=== PATIENT | female | born 1985 | race Two or more races ===

== ENCOUNTER 2024-02-18 13:06 | Emergency (ER) | payer MEDICAID ==
[~2024-02-18] VITALS: Ht 167.6 cm; Wt 77.2 kg
[2024-02-18 13:33] LABS: Basophils # (auto) 0 10 ^3/uL (0-0.2); Basophils % (auto) 0.8 % (0.0-2.0); Eosinophils # (auto) 0.1 10 ^3/uL (0-0.8); Eosinophils % (auto) 2.9 % (0.0-7.0); Hemoglobin 14.7 g/dL (12.2-16.2); Lymphocytes # (auto) 1.4 10 ^3/uL (0.4-5.4); Lymphocytes % (auto) 30.5 % (10.0-50.0); Mean Corpuscular Hemoglobin 31.8 pg (28.0-32.0); Mean Corpuscular Volume 90.9 fL (80.0-100.0); Monocytes # (auto) 0.3 10 ^3/uL (0-1.3); Monocytes % (auto) 7.5 % (0.0-12.0); Neutrophils # (auto) 2.7 10 ^3/uL (1.6-8.6); Neutrophils % (auto) 58.3 % (37.0-80.0); Red Blood Cells 4.62 10^6/uL (4.0-5.20); Red Cell Distribution Width 13.8 % (11.8-14.3); White Blood Cell 4.5 10^3/uL (4.4-10.8)
[2024-02-18 13:50] LABS: INR 1.04 (0.9-1.15); Partial Thromboplastin Time 28.1 SEC (24.5-34.5)
[2024-02-18 13:55] LABS: Alanine Aminotransferase 25 U/L (7-40); Albumin 4.5 g/dL (3.2-4.8); Alkaline Phosphatase 79 U/L (46-116); Anion Gap 11 (5-15); Aspartate Aminotransferase 10 U/L (13-40); BUN/Creatinine Ratio 12.2 (10.0-20.0); Bilirubin, Total 0.9 mg/dL (0.2-1.0); Blood Urea Nitrogen 11 mg/dL (9-23); Calcium 9.9 mg/dL (8.7-10.4); Carbon Dioxide 24 mmol/L (20-30); Chloride 107 mmol/L (98-107); Glucose 92 mg/dL (74-106); Magnesium 1.9 mg/dL (1.6-2.6); Potassium 3.6 mmol/L (3.5-5.1); Sodium 142 mmol/L (136-145)
[2024-02-18 13:56] LABS: Total Protein 7.1 g/dL (5.7-8.2)
[2024-02-18] MEDS: MORPHINE SULFATE 4 MG/ML SYR/VIAL IV ONE (15:09)
[2024-02-18] MEDS: NITROGLYCERIN 2% OINT 1GM PKG TD ONE (15:09)
[2024-02-18 15:10] LABS: Urine Bacteria None Seen /hpf (None Seen)
[2024-02-18] MEDS: SODIUM CHLORIDE 0.9% 2,000 ML IV ONE (15:15)
[2024-02-18] MEDS: ASPirin 325 MG TAB PO ONE (15:15)
[2024-02-18 15:17] LABS: Urine Blood 1+ /uL (Negative); Urine Clarity Turbid (Clear); Urine Color Yellow (Yellow); Urine Mucus MODERATE (None Seen); Urine Protein, UAD 1+ (Negative); Urine Specific Gravity 1.031 (1.001-1.035); Urine Urobilinogen Normal (Negative); Urine WBC 12 /hpf (0 - 5); Urine pH 5.5 (5.0-9.0)
[2024-02-18 15:19] LABS: Free T3 3.19 pg/mL (2.3-4.2); Free T4 (Free Thyroxine) 1.29 ng/dL (0.89-1.76)
[2024-02-18 16:52] VITALS: BP 108/59; PULSE 63; RESP 18; TEMP 97.8; O2SAT 100
== END 2024-02-18 16:53 | disposition home or self-care (01) ==
LOC: ER 13:06
DX: R00.2 Palpitations (principal); E86.0 Dehydration; E78.5 Hyperlipidemia, unspecified
CPT/HCPCS: 36415; 71045; 80053; 81001; 83735; 84439; 84443; 84481; 84484; 85025; 85610; 85730; 93005; 96360; 96361; 99285; J7030

== ENCOUNTER 2024-03-01 09:03 | Day surgery (SDC) | payer MEDICAID ==
[~2024-03-01] VITALS: Ht 167.6 cm; Wt 76.7 kg
[~2024-03-01 09:03] MED LIST: PREN-96 PO
[2024-03-01] MEDS ORDERED: ANGIOMAX 250 MG VIAL IV ONE (12:08)
[2024-03-01] MEDS ORDERED: HEPARIN SODIUM (PORCINE) 5000 UNITS/ML 1ML VIAL ONE (12:08)
[2024-03-01] MEDS ORDERED: fentaNYL CITRATE 100 MCG/2 ML VL ONE (12:09)
[2024-03-01] MEDS ORDERED: VERAPAMIL 2.5MG/ML INJ 2ML VIAL IV ONE (12:09)
[2024-03-01] MEDS ORDERED: MIDAZOLAM HCL 2MG/2ML 2ml VIAL (1mg/ml) ONE (12:09)
[2024-03-01] MEDS ORDERED: SODIUM CHL 0.9% 0 ML ONE (12:09)
[2024-03-01] MEDS ORDERED: LIDOCAINE 2%HCL (LOCAL ANESTH.) INJ 20ML MDV ONE (12:10)
== END 2024-03-01 14:35 | disposition home or self-care (01) ==
LOC: CATH 09:03
PROVIDERS: ATTEND Internal Medicine
DX: I25.10 Atherosclerotic heart disease of native coronary artery without angina pectoris (principal)
CPT/HCPCS: 93458; C1887; C1894; J1644; J2250; J3010; J7030; Q9967; 99152

== ENCOUNTER 2024-12-21 10:49 | Outpatient (CLI) | payer MEDICAID ==
[2024-12-21] MEDS ORDERED: ALBUTEROL SULF 2.5 MG/0.5ML(0.5%) NEB SOLN ONE (11:02)
== END 2024-12-21 17:00 | disposition home or self-care (01) ==
LOC: RT 10:49
PROVIDERS: ATTEND Internal Medicine
DX: Z01.811 Encounter for preprocedural respiratory examination (principal); I42.9 Cardiomyopathy, unspecified
CPT/HCPCS: 94060; 94729

== ENCOUNTER 2025-06-20 09:16 | Emergency (ER) | payer MEDICAID ==
[~2025-06-20] VITALS: Ht 167.6 cm; Wt 82.2 kg
--- NOTE | 2025-06-20 09:37 | ED.PDOC ---
HPI Comments This is a 39 year old female presenting to the ED with chief complaint of chest pain. Patient reports that she has been experiencing left sided chest pain with associated SOB and lightheadedness since 0430 this morning. Patient relays that her pain has been occurring intermittently since then. Patient notes she is currently on Ranexa, Entresto, and Jardiance. Patient denies any dizziness, headache, N/V, or abdominal pain. Chief Complaint: Chest Pain Time Seen by MD: 09:34 Primary Care Provider: KELLIE Cruz Notes: Nurses Notes, Medications, Allergies Allergies: Coded Allergies: NO KNOWN ALLERGIES (Unverified , 02/28/24) Home Meds Reported Medications Vit W/ Ferrous Fumara ( One Daily) Daily Tab, 1 TAB PO DAILY, #90 TAB 3 Refills 02/28/24 Information Source: Patient Mode of Arrival: Ambulatory Severity: Moderate Timing: Hours Duration: Since onset Prehospital treatment: None Location: Chest (L) Quality: Sharp Onset: At Rest Cardiac Risk Factors: Hyperlipidemia PE Risk Factors: None Associated Signs and Symptoms: SOB Past Medical History PAST MEDICAL HISTORY: High Lipids Surgical History: Denies all surgeries 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 History Family History Family History: Reviewed,noncontributory to illness, No family hx of Cancer, No family hx of DM, No family hx of Heart jocelyn, No family hx of HTN, No family hx ofKidney jocelyn, No family hx of Liver jocelyn, No family hx of Lung jocelyn, No family hx of Stroke Social History Smoker: Non-Smoker Alcohol: Denies ETOH Use Drugs: Denies Drug Use Lives In: Home Constitutional: denies: chills, diaphoresis, fatigue, fever, malaise, sweats, weakness, others EENTM: denies: blurred vision, double vision, ear bleeding, ear discharge, ear drainage, ear pain, ear ringing, eye pain, eye redness, hearing loss, mouth pain, mouth swelling, nasal discharge, nose bleeding, nose congestion, nose pain, photophobia, tearing, throat pain, throat swelling, voice changes, others Respiratory: reports: shortness of breath; denies: cough, hemoptysis, orthopnea, SOB at rest, SOB with excertion, stridor, wheezing, others Cardiovascular: reports: chest pain, lightheadedness; denies: dizzy spells, diaphoresis, Dyspnea on exertion, edema, irregular heart beat, left arm pain, palpitations, PND, syncope, others Gastrointestinal: denies: abdomen distended, abdominal pain, blood streaked bowels, constipated, diarrhea, dysphagia, difficulty swallowing, hematemesis, melena, nausea, poor appetite, poor fluid intake, rectal bleeding, rectal pain, vomiting, others Genitourinary: denies: abnormal vagina bleeding, burning, dyspareunia, dysuria, flank pain, frequency, hematuria, incontinence, pain, , vagina discharge, urgency, others Neurological: denies: dizziness, fainting, headache, left sided numbness, left sided weakness, numbness, paresthesia, pre-existing deficit, right sided numbness, right sided weakness, seizure, speech problems, tingling, tremors, weakness, others Musculoskeletal: denies: back pain, gout, joint pain, joint swelling, muscle pain, muscle stiffness, neck pain, others Integumetry: denies: bruises, change in color, change in hair/nails, dryness, laceration, lesions, lumps, rash, wounds, others Allergic/Immunocompromised: denies: Difficulty Healing, Frequent Infections, Hives, Itching, others Hematologic/Lymphatic: denies: anemia, blood clots, easy bleeding, easy bruising, swollen glands, others Endocrine: denies: excessive hunger, excessive sweating, excessive thirst, excessive urination, flushing, intolerance to cold, intolerance to heat, unexplained weight gain, unexplained weight loss, others Psychiatric: denies: anxiety, bipolar disorder, depression, hopeless, panic disorder, schizophrenia, sleepless, suicidal, others All Other Systems: Reviewed and Negative Physical Exam General Appearance: Moderate Distress, Normal HEENT: Normal ENT Inspection, Pharynx Normal, TMs Normal Neck: Full Range of Motion, Non-Tender, Normal, Normal Inspection Respiratory: Chest Non-Tender, Lungs Clear, No Accessory Muscle Use, No Respiratory Distress, Normal Breath Sounds Cardiovascular: No Edema, No JVD, No Murmur, No Gallop, Normal Peripheral Pulses, Regular Rate/Rhythm Breast Exam: Deferred Gastrointestinal: No Organomegaly, Non Tender, No Pulsatile Mass, Normal Bowel Sounds, Soft Genitalia: Deferred Pelvic: Deferred Rectal: Deferred Extremities: No calf tenderness, Normal capillary refill, Normal inspection, Normal range of motion, Non-tender, No pedal edema Musculoskeletal : Apperance: Normal Neurologic: Alert, pharmacy affairs assistant II-XII nml as Tested, No Motor Deficits, Normal Affect, Normal Mood, No Sensory Deficits Cerebellar Function: Normal Reflexes: Normal Skin: Dry, Normal Color, Warm Peripheral Pulses: 3+ Radial (R), 3+ Radial (L) Lymphatic: No Adenopathy Was a procedure done? Was a procedure done?: No CP Differential Dx Differential Diagnosis: A-fib, A-Flutter, Angina, Anxiety / Panic Attack, Atrial Dysrhythmia, Electrolyte Disorder X-Ray, Labs, Meds, VS Vital Signs Date Time Temp Pulse Resp B/P (MAP) Pulse Ox O2 Delivery O2 Flow Rate FiO2 06/20/25 11:37 98.2 67 17 102/72 (82) 99 98.2 06/20/25 10:23 67 06/20/25 10:08 98.1 75 17 110/68 (82) 100 98.1 06/20/25 10:08 75 17 100 Room Air 06/20/25 09:25 98.2 68 20 120/76 98 98.2 06/20/25 09:23 69 Lab Test 06/20/25 10:19 06/20/25 09:45 06/20/25 09:31 Range/Units Troponin I High Sensitivity 7 6 </=34 ng/L Urine Color Yellow Yellow Urine Clarity Turbid H Clear Urine pH 5.5 5.0-9.0 Urine Specific [place] 1.031 1.001-1.035 Urine Protein Negative Negative Urine Ketones Negative Negative Urine Blood Negative Negative /uL Urine Nitrite Negative Negative Urine Bilirubin Negative Negative Urine Urobilinogen Normal Negative mg/dL Urine Leukocyte Esterase 1+ Negative /uL Urine RBC 7 0 - 4 /hpf Urine Microscopic WBC 5 0-5 /HPF Urine Squamous Epithelial Cells Few <5 /hpf Urine Bacteria None seen None Seen /hpf Urine Glucose 4+ H Normal mg/dL Urine Test Negative Negative White Blood Count 4.3 L 4.4-10.8 10^3/uL Red Blood Count 4.24 4.0-5.20 10^6/uL Hemoglobin 13.5 12.2-16.2 g/dL Hematocrit 39.2 36.0-46.0 % Mean Corpuscular Volume 92.3 80.0-100.0 fL Mean Corpuscular Hemoglobin 31.9 28.0-32.0 pg Mean Corpuscular Hemoglobin Concent 34.6 32.0-36.0 g/dL Red Cell Distribution Width 13.4 11.8-14.3 % Platelet Count 242 140-450 10^3/uL Mean Platelet Volume 7.9 6.9-10.8 fL Neutrophils (%) (Auto) 65.1 37.0-80.0 % Lymphocytes (%) (Auto) 25.7 10.0-50.0 % Monocytes (%) (Auto) 7.2 0.0-12.0 % Eosinophils (%) (Auto) 1.5 0.0-7.0 % Basophils (%) (Auto) 0.5 0.0-2.0 % Neutrophils # (Auto) 2.8 1.6-8.6 10 ^3/uL Lymphocytes # (Auto) 1.1 0.4-5.4 10 ^3/uL Monocytes # (Auto) 0.3 0-1.3 10 ^3/uL Eosinophils # (Auto) 0.1 0-0.8 10 ^3/uL Basophils # (Auto) 0 0-0.2 10 ^3/uL Nucleated Red Blood Cells 0.1 % Sodium Level 143 136-145 mmol/L Potassium Level 4.0 3.5-5.1 mmol/L Chloride Level 106 98-107 mmol/L Carbon Dioxide Level 29 20-31 mmol/L Anion Gap 8 5-15 Blood Urea Nitrogen 16 9-23 mg/dL Creatinine 0.96 0.550-1.02 mg/dL Glomerular Filtration Rate Calc 78 >90 mL/min BUN/Creatinine Ratio 16.7 10.0-20.0 Serum Glucose 80 74-106 mg/dL Calcium Level 9.7 8.7-10.4 mg/dL Patient alert. Complaining of chest pain. Vitals stable. Answering questions. Not in distress pain EKG reviewed does not show any acute changes. Cardiac marker within normal limits. Urinalysis shows UTI. Was given prescription of Macrobid antibiotic. Was told to follow up with her primary care physician. Was told to come back there is any problem. Time of 1ST Reevaluation: 10:34 Reevaluation 1ST: Unchanged Patient Education/Counseling: Diagnosis, Treatment Family Education/Counseling: No Family Present SEPSIS Sepsis Screen Physician Orders Electrocardigram (06/20/25 09:24) Electrocardigram (06/20/25 10:24) Electrocardigram (06/20/25 12:24) Troponin-I Hs (06/20/25 12:24) Chest Portable (06/20/25 09:24) Vital Signs Date Time Temp Pulse Resp B/P (MAP) Pulse Ox O2 Delivery O2 Flow Rate FiO2 06/20/25 11:37 98.2 67 17 102/72 (82) 99 98.2 06/20/25 10:23 67 06/20/25 10:08 98.1 75 17 110/68 (82) 100 98.1 06/20/25 10:08 75 17 100 Room Air 06/20/25 09:25 98.2 68 20 120/76 98 98.2 06/20/25 09:23 69 Laboratory Tests Test 06/20/25 09:31 White Blood Count 4.3 10^3/uL (4.4-10.8) L Departure 1 Departure Time of Disposition: 12:23 Impression: Primary Impression: Musculoskeletal chest pain Additional Impression: Urinary tract infection Qualified Codes: N30.00 - Acute cystitis without hematuria Disposition: 01 HOME / SELF CARE / HOMELESS Condition: Good e-Prescriptions Nitrofurantoin Monohydrate Mac (Macrobid) 100 Mg Cap 100 MG PO BID for 7 Days, #14 CAP Prov: FRANCA CHINCHILLA MD 06/20/25 Discharged With: Self Critical Care Note Critical Care Time?: No Stability Stability form required: No Heart Score Heart Score: Heart Score Response (Comments) Value History Moderate Suspicious 1 EKG Normal 0 Age <45 0 Risk Factors No known risk factors 0 Troponin Normal limit 0 Total 1 I personally scribed for FRANCA CHINCHILLA MD ([email or web address]) on 06/20/25 at 09:37. Electronically submitted by Charles Arroyo ([email or web address]). FRANCA CHINCHILLA MD Jun 20, 2025 09:37
[2025-06-20 09:48] LABS: Hematocrit 39.2 % (36.0-46.0); Hemoglobin 13.5 g/dL (12.2-16.2); Mean Corpuscular Hemoglobin 31.9 pg (28.0-32.0); Mean Corpuscular Volume 92.3 fL (80.0-100.0); Nucleated Red Blood Cells % 0.1 %
[2025-06-20 09:54] LABS: Chloride 106 mmol/L (98-107); Potassium 4.0 mmol/L (3.5-5.1); Sodium 143 mmol/L (136-145)
[2025-06-20 09:55] LABS: Anion Gap 8 (5-15); Calcium 9.7 mg/dL (8.7-10.4); Carbon Dioxide 29 mmol/L (20-31)
[2025-06-20 10:00] LABS: BUN/Creatinine Ratio 16.7 (10.0-20.0); Blood Urea Nitrogen 16 mg/dL (9-23); Glucose 80 mg/dL (74-106)
[2025-06-20 10:34] LABS: Urine Protein, UAD Negative (Negative)
--- NOTE | 2025-06-20 11:06 | DVH ---
CHEST RADIOGRAPH Indication: CP Technique: XY CHEST PORTABLE Comparison: None FINDINGS: The cardiac silhouette is unremarkable. The lungs demonstrate no pulmonary airspace consolidation. The pulmonary vasculature is unremarkable. There is no pleural effusion. There is no pneumothorax. IMPRESSION: No pulmonary airspace consolidation.
[2025-06-20 11:37] VITALS: BP 102/72; PULSE 67; RESP 17; TEMP 98.2; O2SAT 99
[2025-06-20] MEDS ORDERED: NITR-87 PO (12:24)
--- NOTE | 2025-06-25 07:08 | ECG ---
[facility] Test Date: 2025-06-20 Test Time: 10:23:10 Pat Name: CELESTINA VILLA PEREIRDepartment: ED Room: Gender: F [employer] Hand: ANTONIETTA : 1985 Requested By: EMERGENCY EMERGENCY Order Number: [id number] Reading MD: Austyn Stinson Measurements Intervals [place] Rate: 67 P: 82 CO: 169 QRS: 84 QRSD: 78 T: -3 QT: 487 QTc: 514 Interpretive Statements Sinus rhythm Borderline T abnormalities, anterior leads Prolonged QT interval Electronically Signed On 06-26-2025 9:54:12 PST by Austyn Stinson Please click the below link to view image of tracing.
--- NOTE | 2025-06-25 07:08 | ECG ---
[facility] Test Date: 2025-06-20 Test Time: 09:23:34 Pat Name: CELESTINA GAMEZIRDepartment: ED Room: Gender: F Mica Sizer: ANTONIETTA : 1985 Requested By: EMERGENCY EMERGENCY Order Number: [id number] Reading MD: Austyn Stinson Measurements Intervals [place] Rate: 69 P: 69 HI: 168 QRS: 87 QRSD: 114 T: 139 QT: 529 QTc: 567 Interpretive Statements Sinus rhythm Borderline intraventricular conduction delay Nonspecific T abnormalities, lateral leads Prolonged QT interval Electronically Signed On 06-26-2025 9:54:06 PST by Austyn Stinson Please click the below link to view image of tracing.
== END 2025-06-20 12:40 | disposition home or self-care (01) ==
LOC: ER 09:16
DX: N39.0 Urinary tract infection, site not specified (principal); R07.89 Other chest pain
CPT/HCPCS: 36415; 71045; 80048; 81001; 81025; 84484; 85025; 93005